=== PATIENT | male | born 1965 | race Caucasian/White ===

== ENCOUNTER → 2020-08-06 07:41 | Outpatient (CLI) | payer OTHER, SELFPAY ==
[2020-08-06 19:56] LABS: SARS-CoV-2 RNA PCR Negative
== END ==
PROVIDERS: PCP Family Medicine; Visit Provider Internal Medicine Gastroenterology
DX: Z01.812 Encounter for preprocedural laboratory examination (principal); Z20.822 Contact with and (suspected) exposure to COVID-19
CPT/HCPCS: C9803; U0003; U0005

== ENCOUNTER 2020-08-10 02:47 | Day surgery (SDC) | payer OTHER, SELFPAY ==
[2020-07-29 14:01] VITALS: BMI 23.7
[2020-08-10 08:57] VITALS: BP 133/80; PULSE 55; RESP 16; TEMP 36.1; O2SAT 100; BMI 23.5
[2020-08-10] MEDS: LACTATED RINGERS 1,000 ML 150 ML IV CONT (09:02)
--- NOTE | 2020-08-10 09:12 | PM.HPGS ---
History of Present Illness History of Present Illness Consent: Risks, benefits, and alternatives have been discussed and questions answered. Patient agrees to proceed with procedure. Chief complaint: neoplasm screening, hx colon polyps Narrative: José Miguel Sanchez is a 55 year old male here for colon cancer screening. He has had polyps removed about 5 years ago. Review of Systems Review of Systems: All systems reviewed & are unremarkable except as noted in HPI and below PMFSH Past Medical History Medical History HLD (hyperlipidemia) Wellness examination Family History Family History Father Family history of lung cancer Social History Social History Smoking status: Never smoker Second hand tobacco smoke exposure: No Alcohol intake: current Drinks per week: 1 Alcohol use details: MONTHLY Substance use: never Substance use type: does not use Living arrangements: with family Gender identity (if verbalized by the patient): Male Spiritual care concerns: No Meds Home Medications and Allergies Home Medications Medication Instructions Recorded Confirmed Type No Home Medications 04/01/19 07/29/20 History Allergies Allergy/AdvReac Type Severity Reaction Status Date / Time No Known Allergies Allergy Verified 08/10/20 08:55 Vital Signs Vital Signs - 24 hr 08/10/20 08:57 Temperature 36.1 C L Pulse Rate 55 L Respiratory Rate 16 Blood Pressure 133/80 Pulse Oximetry 100 Exam Const: General: alert Orientation/consciousness: patient oriented x3 Resp: Auscultation: clear to auscultation bilaterally Cardio: Rhythm: regular rhythm GI: GI Palp: Yes Soft to palpation and No Tenderness to palpation present (GI) Neuro: General: patient oriented x3 Assessment and Plan Assessment and plan (1) Colon cancer screening: Code(s): Z12.11 - Encounter for screening for malignant neoplasm of colon Status: Acute Assessment and Plan: Colonoscopy with possible biopsy or polypectomy or cautery or injection of substances.
--- NOTE | 2020-08-10 09:26 | WPDANESEPPF ---
Anes - Initial Pre Proc Eval Procedure: Operation Date: 08/10/20 09:30 Proposed Procedures p Screening Colonoscopy - Peter Alexander MD Date/Time: 08/10/20 09:26 Surgeon: Peter Alexander MD Pre Op Diagnosis: neoplasm screening, hx colon polyps Patient Data Age: 55 Gender: M Height: 5 ft 10 in Weight: 74.4 kg Last Vital Signs Temp 97 F L 08/10/20 08:57 Pulse 55 L 08/10/20 08:57 Resp 16 08/10/20 08:57 BP 133/80 08/10/20 08:57 Pulse Ox 100 08/10/20 08:57 Allergies Allergy/AdvReac Type Severity Reaction Status Date / Time No Known Allergies Allergy Verified 08/10/20 08:55 Home Medications Medication Instructions Recorded Confirmed Type No Home Medications 04/01/19 07/29/20 History Patient hx anesthesia problems: none Family hx anesthesia problems: none PMFSH Past Medical History Medical History HLD (hyperlipidemia) Wellness examination Family History Family History Father Family history of lung cancer Social History Social History Smoking status: Never smoker Second hand tobacco smoke exposure: No Alcohol intake: current Drinks per week: 1 Alcohol use details: MONTHLY Substance use: never Substance use type: does not use Living arrangements: with family Gender identity (if verbalized by the patient): Male Spiritual care concerns: No Anes - Eval Final PreProcedure Day of Procedure 08/10/20 09:26 Patient weight: normal Heart: regular rate and rhythm Lungs: clear to auscultation Airway: Mallampati scale class II Neurological: alert and oriented Last oral intake: >/= 8 hours ASA classification: II Emergent: no Anesthetic plan: proceed Anesthesia type and monitoring: general GIVS and standard monitoring Informed Consent: The patient's anesthetic plan and its attendant risks and benefits were discussed with the patient/family/POA. Questions were solicited and answers provided to the satisfaction of the patient/family/POA.
[2020-08-10 09:55] VITALS: BP 103/65; PULSE 59; RESP 21; O2SAT 99
[2020-08-10 10:05] VITALS: BP 102/62; PULSE 52; RESP 17; O2SAT 99
[2020-08-10 10:15] VITALS: BP 98/61; PULSE 50; RESP 19; O2SAT 100
== END 2020-08-10 10:31 | disposition home or self-care (01) ==
PROVIDERS: PCP Family Medicine; Visit Provider Internal Medicine Gastroenterology
PROC: 0DJD8ZZ Inspection of Lower Intestinal Tract, Via Natural or Artificial Opening Endoscopic (ICD-10-PCS; CPT 45378; principal; 2020-08-10 09:30)
DX: Z12.11 Encounter for screening for malignant neoplasm of colon (principal); Z86.010 Personal history of colon polyps; E78.5 Hyperlipidemia, unspecified; K64.8 Other hemorrhoids
CPT/HCPCS: 45378; J2704; J7120

== ENCOUNTER 2021-07-13 11:13 | Outpatient (CLI) | payer OTHER, SELFPAY ==
--- NOTE | ~2021-07-13 | XR_ITS ---
XR chest 2V DATE: 07/13/2021 11:26 INDICATION: Chest pain TECHNIQUE: PA and lateral views COMPARISON: 06/04/2017 PA and lateral views FINDINGS: Normal heart size. No hilar or mediastinal enlargement. Bilateral hyperinflation. No pul monary infiltrate or consolidation, pulmonary vascular congestion or pleural effusion or pneumothorax . IMPRESSION: No active cardiopulmonary disease Reviewed, dictated and finalized at location A.
== END 2021-07-13 11:14 | disposition home or self-care (01) ==
LOC: ANHIMG 11:15
PROVIDERS: PCP Family Medicine; Visit Provider Nurse Practitioner Family
DX: R07.9 Chest pain, unspecified (principal)
CPT/HCPCS: 71046

== ENCOUNTER 2021-08-15 15:39 | Outpatient (CLI) | payer OTHER, SELFPAY ==
--- NOTE | ~2021-08-15 | XR_ITS ---
EXAMINATION: XR shoulder LT min 2V INDICATION: Right shoulder pain TECHNIQUE: Four views of the left shoulder are submitted. COMPARISON: 07/13/2021 FINDINGS: Normal alignment. No fracture. Glenohumeral and acromioclavicular joint spaces are normal. Soft tissues are unremarkable. IMPRESSION: 1. No acute osseous abnormality. Reviewed, dictated and finalized at location F.
--- NOTE | ~2021-08-15 | XR_ITS ---
EXAMINATION: XR knee RT 3V DATE: 08/15/2021 16:08 INDICATION: Right knee pain TECHNIQUE: Three views of the right knee were obtained. COMPARISON: None. FINDINGS: Alignment is normal. No fracture or osteochondral lesion. There is mild tricompartmental os teoarthritis characterized by tiny marginal osteophytes. No joint effusion/synovitis. Calcified athe rosclerosis is noted. 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 IMPRESSION: 1. No acute osseous abnormality. Reviewed, dictated and finalized at location F.
== END 2021-08-15 15:40 | disposition home or self-care (01) ==
LOC: ANHIMG 15:40
PROVIDERS: PCP Family Medicine; Visit Provider Nurse Practitioner Family
DX: M25.561 Pain in right knee (principal); M25.512 Pain in left shoulder
CPT/HCPCS: 73030; 73562